=== PATIENT | male | born 1940 | race Caucasian/White ===

== ENCOUNTER 2017-05-18 10:48 | Inpatient (IN) | payer OTHER, MEDICARE ==
--- NOTE | 2017-05-18 11:29 | EDM.PDOC ---
ED HPI GENERAL MEDICAL PROBLEM - General Chief Complaint: General Stated Complaint: FALL Time Seen by Provider: 05/18/17 11:08 Source of Information: Reports: Patient History Limitations: Reports: No Limitations - History of Present Illness INITIAL COMMENTS - FREE TEXT/NARRATIVE: HISTORY AND PHYSICAL: History of present illness: Patient is a 76-year-old male who presents to the emergency room with complaints of right hip pain post fall. Patient was at the hospital to receive an ultrasound of a "fatty tumor" and upon leaving the facility he states he " got ran over by the revolving door". The hospital called a rapid response due to the patient's fall and he was evaluated by staff. At this time he was offered to be evaluated through the emergency room. He states "I'm fine but suggested I be seen". He does have an abrasion to the right scalp, right thumb and pain with ambulation to the right hip. He says a 4 point cane with ambulation. He denies any loss of consciousness. Does take Plavix daily. Review of systems: As per history of present illness and below otherwise all systems reviewed and negative. Past medical history: As per history of present illness and as reviewed below otherwise noncontributory. Surgical history: As per history of present illness and as reviewed below otherwise noncontributory. Social history: No reported history of drug or alcohol abuse. Family history: As per history of present illness and as reviewed below otherwise noncontributory. Physical exam: General: Well-developed and well-nourished 76-year-old male. Alert and oriented. Nontoxic appearing and in no acute distress. HEENT: Tenderness with palpation of the scalp, normocephalic, pupils reactive, negative for conjunctival pallor or scleral icterus, mucous membranes moist, throat clear, neck supple, nontender, trachea midline. Abrasion noted to right upper forehead. Lungs: Clear to auscultation, breath sounds equal bilaterally, chest nontender. Heart: S1S2, regular rate and rhythm Abdomen: Soft, nondistended, nontender. Negative for masses or hepatosplenomegaly. Negative for costovertebral tenderness. Pelvis: Stable nontender. Genitourinary: Deferred. Rectal: Deferred. Skin: Abrasion noted to right upper scalp/forehead, abrasion to right thumb. Extremities: Moves all extremities per self, (uses a 4 point walker to ambulate - normal variance). Mild tenderness to the right hip with weightbearing and deep palpation. No tenderness to any of the other extremities with range of motion or palpation. Denies any numbness or tingling to upper or lower extremities. Neurovascular unremarkable. Neuro: Awake, alert, oriented. Cranial nerves II through XII unremarkable. Cerebellum unremarkable. Motor and sensory unremarkable throughout. Exam nonfocal. Patient lab work is normal. No significant findings with the head CT, cervical spine, x-ray of pelvis and hip. EKG shows normal sinus rhythm. Patient requests to be discharged to home. Upon getting the patient ready for discharge we did attempt to ambulate him. The patient is unable to stand at this time due to his pain with weightbearing. at the bedside states he normally ambulates with his walker and was ambulating without difficulty prior to this fall. CT scan of the hip will be ordered at this time. CT shows a small nondisplaced avulsion fracture of the greater tuberosity with remaining osseous structures and joint spaces preserved. Orthopedics is not available today, but can be consulted. Dr. Sewell was consulted on this case and is agreeable to keep the patient for observation. and patient are aware of this and agreeable. reports that they live in [place] and have multiple stairs in their home, and "I wouldn't be able to get him inside anyway". Diagnostics: CBC, CMP, troponin, EKG, CT head/cervical spine, x-ray pelvis and right hip, CT hip Therapeutics: Wound care, bacitracin, [place] Impression: Mechanical fall Nondisplaced right hip fracture Plan: Observation admission for Dr. Sewell Definitive disposition and diagnosis as appropriate pending reevaluation and review of above. Onset: Today Duration: Minutes: - Related Data Allergies Allergy/AdvReac Type Severity Reaction Status Date / Time clindamycin [From Veltin] Allergy Leg Cramps Verified 05/18/17 14:40 tretinoin [From Veltin] Allergy Leg Cramps Verified 05/18/17 14:40 Home Meds: Home Meds . [Unable to Verify Home Med List] 05/18/17 [History] Past Medical History HEENT History: Reports: Cataract Cardiovascular History: Reports: High Cholesterol, Hypertension Genitourinary History: Reports: Other (See Below) Other Genitourinary History: frequent urination Musculoskeletal History: Reports: Other (See Below) Other Musculoskeletal History: fatty tumor lower left side, had usg today for this Neurological History: Reports: Other (See Below) Other Neuro History: stroke Psychiatric History: Reports: Depression Endocrine/Metabolic History: Reports: Diabetes, Type II - Past Surgical History HEENT Surgical History: Reports: Cataract Surgery, Tonsillectomy, Other (See Below) Other HEENT Surgeries/Procedures: macular hole eye repaired. Social & Family History - Family History Family Medical History: Noncontributory - Tobacco Use Smoking Status *Q: Never Smoker Second Hand Smoke Exposure: No - Caffeine Use Caffeine Use: Reports: None - Recreational Drug Use Recreational Drug Use: No ED ROS GENERAL - Review of Systems Review Of Systems: ROS reveals no pertinent complaints other than HPI. ED EXAM, GENERAL - Physical Exam Exam: See Below (See dictation) Course - Vital Signs Last Recorded V/S: Last Vital Signs Temp 96.6 F 05/18/17 10:56 Pulse 59 L 05/18/17 10:56 Resp 18 05/18/17 10:56 BP 110/61 05/18/17 10:56 Pulse Ox 94 L 05/18/17 10:56 - Orders/Labs/Meds Orders: Active Orders 24 hr Category Date Time Status Patient Status [ADT] Stat ADT 05/18/17 14:43 Active EKG 12 Lead [EKG Documentation Completion] [RC] STAT Care 05/18/17 11:22 Active Labs: Laboratory Tests 05/18/17 05/18/17 05/18/17 Range/Units 11:50 11:50 11:50 WBC 7.18 (4.0-11.0) K/uL RBC 4.69 (4.50-5.90) M/uL Hgb 15.1 (13.0-17.0) g/dL Hct 44.5 (38.0-50.0) % MCV 94.9 (80.0-98.0) fL MCH 32.2 H (27.0-32.0) pg MCHC 33.9 (31.0-37.0) g/dL RDW Std Deviation 49.4 (28.0-62.0) fl RDW Coeff of Olga 15 (11.0-15.0) % Plt Count 182 (150-400) K/uL MPV 10.80 (7.40-12.00) fL Neut % (Auto) 60.4 (48.0-80.0) % Lymph % (Auto) 28.3 (16.0-40.0) % Citrus % (Auto) 5.3 (0.0-15.0) % Eos % (Auto) 5.7 (0.0-7.0) % Baso % (Auto) 0.3 (0.0-1.5) % Neut # (Auto) 4.3 (1.4-5.7) K/uL Lymph # (Auto) 2.0 (0.6-2.4) K/uL [place] # (Auto) 0.4 (0.0-0.8) K/uL Eos # (Auto) 0.4 (0.0-0.7) K/uL Baso # (Auto) 0.0 (0.0-0.1) K/uL Nucleated RBC % 0.0 /100WBC Nucleated RBCs # 0 K/uL INR 1.12 Sodium 141 (136-146) mmol/L Potassium 4.2 (3.5-5.1) mmol/L Chloride 105 (98-110) mmol/L Carbon Dioxide 26 (21-31) mmol/L BUN 13 (6.0-23.0) mg/dL Creatinine 1.2 (0.6-1.5) mg/dL Est Cr Clr Drug Dosing 55.76 mL/min Estimated GFR (MDRD) 59.2 ml/min Glucose 165 H (60-110) mg/dL Calcium 9.5 (8.8-10.8) mg/dL Total Bilirubin 0.7 (0.1-1.5) mg/dL AST 26 (5-40) IU/L ALT 32 (8-54) IU/L Alkaline Phosphatase 47 (40-150) Troponin I < 0.10 (0.0-0.29) NG/ML Total Protein 6.7 (6.0-8.0) g/dL Albumin 4.1 (3.4-4.8) g/dL Globulin 2.6 (2.0-3.5) g/dL Albumin/Globulin Ratio 1.6 (1.3-2.8) Meds: Medications Discontinued Medications Generic Name Dose Route Start Last Admin Trade Name Freq PRN Reason Stop Dose Admin Hydrocodone Bitart/Acetaminophen 1 tab 05/18/17 14:43 [place] 325-5 Mg PO 05/18/17 14:44 ONETIME ONE Bacitracin 1 dose 05/18/17 12:57 05/18/17 14:07 Bacitracin Oint 1 Gm TOP 05/18/17 12:58 1 dose ONETIME ONE Administration Departure - Departure Time of Disposition: 14:42 Disposition: Refer to Observation Clinical Impression: Fall Qualifiers: Encounter type: initial encounter Qualified Code(s): W19.XXXA - Unspecified fall, initial encounter Hip fracture Qualifiers: Encounter type: initial encounter Fracture type: closed Laterality: right Qualified Code(s): S72.001A - Fracture of unspecified part of neck of right femur, initial encounter for closed fracture - Discharge Information Referrals: PCP,None [Primary Care Provider] - Forms: ED Department Discharge - My Orders Last 24 Hours: My Active Orders 05/18/17 11:22 EKG 12 Lead [EKG Documentation Completion] [RC] STAT 05/18/17 14:43 Patient Status [ADT] Stat - Assessment/Plan Last 24 Hours: My Active Orders 05/18/17 11:22 EKG 12 Lead [EKG Documentation Completion] [RC] STAT 05/18/17 14:43 Patient Status [ADT] Stat
[2017-05-18 12:29] LABS: CHLORIDE,CL 105 mmol/L (98-110); SODIUM,NA 141 mmol/L (136-146)
--- NOTE | 2017-05-18 12:36 | CT ---
EXAMINATION: Non contrast CT head. Coronal and sagittal reformats. HISTORY: Pain FINDINGS: No evidence of intra or extra axial hemorrhage, mass, midline shift, hydrocephalus or edema. Old sma ll left periventricular infarct adjacent white matter hypodensities noted. Mild generalized atrophy. No hypoattenuation changes in the major vascular territories to suggest acute infarct. No abnormal i ntracranial calcifications are detected. No evidence of substantial vascular calcifications. Moderate mucosal thickening within the right maxillary sinus. The orbits and globes are symmetric. Pituitary fossa appears unremarkable. Calvarium is intact. No evidence of skull fracture. IMPRESSION: 1. No acute intracranial findings. 2. Mild small vessel ischemic changes and generalized atrophy. 3. Old small left periventricular infarct.
--- NOTE | 2017-05-18 12:42 | CT ---
EXAMINATION: CT cervical spine HISTORY: Pain COMPARISON: None TECHNIQUE: Axial CT images obtained through the cervical spine without contrast. Coronal and sagittal reconstructions obtained. FINDINGS: The cervical spinal alignment appears normal. The vertebral body heights and disc spaces ap pear well-maintained. No fracture or acute osseous abnormality. Bone mineralization is normal. There is likely a small osteophyte disc complex noted at C3-C4. Facet arthritic changes are noted within th e lower cervical spine most prominent at C5-C6. The lung apices are clear. Small right millimeter nod ule within the left thyroid lobe containing a few subtle peripheral calcifications. IMPRESSION: 1. No acute findings within the cervical spine. 2. Degenerative changes noted.
--- NOTE | 2017-05-18 12:49 | CR ---
EXAMINATION: Pelvis and right hip HISTORY: Fall COMPARISON: None TECHNIQUE: AP pelvis and lateral right hip FINDINGS: There is no acute osseous abnormality, dislocation, or fracture. Bone mineralization and lauren int spaces are preserved. The SI joints are symmetric. The iliopectineal lines are intact. Degenerati ve changes noted within the lower lumbar spine. IMPRESSION: No acute osseous abnormality identified.
[2017-05-18] MEDS ORDERED: Bacitracin Oint 1 GM U/D Packet TOP ONE (12:57)
--- NOTE | 2017-05-18 14:22 | CT ---
EXAMINATION: CT right hip HISTORY: Fall COMPARISON: Radiograph from the same day TECHNIQUE: Axial CT images obtained through the right hip without contrast. Coronal and sagittal byron nstructions obtained. FINDINGS: There is a small nondisplaced avulsion fracture of the greater tuberosity remaining osseous structures and joint spaces appear preserved. Bone mineralization appears mildly osteopenic. No norma cent hematoma. Degenerative changes noted within the SI joints anterior bridging osteophytes on the right. Visualized intrapelvic structures appear normal. Moderate fat-containing umbilical hernia. Moderate p rostatomegaly. IMPRESSION: 1. Small nondisplaced right greater trochanter avulsion fracture. 2. Otherwise no acute findings demonstrated.
[2017-05-18] MEDS ORDERED: Acetaminophen/HYDROcodone 325-5 MG Tab PO ONE (14:43)
--- NOTE | 2017-05-18 16:14 | PCM.HP ---
H&P History of Present Illness - General Date of Service: 05/18/17 Admit Problem/Dx: R greater trochanter fracture Source of Information: Patient, Family (, Luiza at bedside) History Limitations: Reports: No Limitations - History of Present Illness Initial Comments - Free Text/Narative: This 76 year old male with pmh of CVA with residual R sided weakness, HTN, dyslipidemia, and DM type 2 presented to the ED today after falling in hospital entryway. His , Luiza, reports they were leaving the facility after having an ultrasound for a suspected lipoma. He insisted on ambulating out of the hospital through the revolving door, he was just about out of the door way when the door sped up again from the slow setting and hit his R heel. This caused him to fall and landed on his R hip. He had pain to his R hip and unable to get himself back up and ambulate. He was assisted with help to wheelchair and agreed for evaluation in the ED. He reports pain to his R hip with movement or palpation or R hip. He denies lightheadedness, headache, chest pain, palpitations, URI symptoms, abdominal pain, urinary symptoms. He denies black or bloody BMs. He normal ambulates short distances at home, needs help getting out of the chair with a lift chair and some assistance from his . Luiza reports he exercises very little to keep strength. He wears AFO to R lower leg due to foot drop. They report he is normally dyspneic with little activity and this has not changed much. He otherwise has been in normal health. In the ED labwork WNL. R hip xray had to no acute abnormalities noted. Head CT negative for acute intracranial process, but noted old left periventricular infarct. Cervical neck CT negative for acute fractures, degenerative changes noted. VSS. He will be admitted post fall with R greater trochanter fracture for pain control and PT due to inability to ambulate since fall. PCP [facility]. - Related Data Allergies/Adverse Reactions: Allergies Allergy/AdvReac Type Severity Reaction Status Date / Time ezetimibe Allergy Muscle Verified 05/18/17 16:25 Aches simvastatin AdvReac Muscle Verified 05/18/17 16:25 Aches Home Medications: Home Meds Benazepril [Lotensin] 20 mg PO BID 05/18/17 [History] Cholecalciferol (Vitamin D3) [Vitamin D3] 1,000 units PO BID 05/18/17 [History] Citalopram Hydrobromide [Celexa] 40 mg PO DAILY 05/18/17 [History] Clopidogrel Bisulfate [Plavix] 75 mg PO BEDTIME 05/18/17 [History] Fenofibrate Nanocrystallized [Fenofibrate] 145 mg PO BEDTIME 05/18/17 [History] Fish Oil/[place]-3 Fatty Acids [Fish Oil 1,000 MG] 2 gm PO BID 05/18/17 [History] Fluticasone Propionate [Flonase] 2 sprays NASBOTH BEDTIME 05/18/17 [History] Glimepiride [Amaryl] 2 mg PO BID 05/18/17 [History] Hydrochlorothiazide 12.5 mg PO DAILY 05/18/17 [History] Metoprolol Tartrate [Lopressor] 25 mg PO BID 05/18/17 [History] Niacin [Niacin ER] 1,000 mg PO BEDTIME 05/18/17 [History] Oxybutynin 2.5 mg PO BID 05/18/17 [History] Tamsulosin [Flomax] 0.4 mg PO PCDINNER 05/18/17 [History] amLODIPine Besylate [Amlodipine Besylate] 10 mg PO DAILY 05/18/17 [History] Past Medical History HEENT History: Reports: Cataract Cardiovascular History: Reports: High Cholesterol, Hypertension Respiratory History: Reports: SOB. Denies: Asthma, COPD, Sleep Apnea Gastrointestinal History: Reports: Other (See Below) (umbilical hernia). Denies : GERD, GI Bleed Genitourinary History: Reports: Other (See Below) Other Genitourinary History: frequent urination Musculoskeletal History: Reports: Other (See Below) Other Musculoskeletal History: suspected lipoma lower left side, had US today for this Neurological History: Reports: CVA Psychiatric History: Reports: Depression Endocrine/Metabolic History: Reports: Diabetes, Type II, Obesity/BMI 30+. Denies: Hypothyroidism Hematologic History: Reports: None - Past Surgical History HEENT Surgical History: Reports: Cataract Surgery, Tonsillectomy, Other (See Below) Other HEENT Surgeries/Procedures: macular hole eye repaired. Social & Family History - Family History Family Medical History: Noncontributory - Tobacco Use Smoking Status *Q: Never Smoker Second Hand Smoke Exposure: No - Caffeine Use Caffeine Use: Reports: None - Recreational Drug Use Recreational Drug Use: No - Living Situation & Occupation Living situation: Reports: , with Spouse Occupation: Retired H&P Review of Systems - Review of Systems: Review Of Systems: See Below General: Reports: No Symptoms. Denies: Fever, Chills, Malaise, Weakness HEENT: Reports: No Symptoms. Denies: Headaches, Hearing Changes, Post Nasal Drip, Sore Throat, Vertigo Pulmonary: Reports: Shortness of Breath (intermittently and with exertion at baseline now. ) Cardiovascular: Reports: Dyspnea on Exertion. Denies: Chest Pain, Palpitations , Edema, Lightheadedness, Syncope Gastrointestinal: Reports: No Symptoms. Denies: Abdominal Pain, Black Stool, Bloody Stool, Constipation, Nausea, Stool Incontinence, Vomiting Genitourinary: Reports: No Symptoms. Denies: Dysuria, Frequency, Burning, Urgency Musculoskeletal: Reports: Joint Pain (R hip pain with ambulation and palpation) Skin: Reports: Wound (abrasion to R scalp and thumb). Denies: Erythema Neurological: Reports: Weakness (R sided, pre-existing no changes.) Hematologic/Lymphatic: Reports: No Symptoms Immunologic: Reports: No Symptoms Exam - Exam Exam: See Below - Vital Signs Vital Signs: Last Vital Signs Temp 98.1 F 05/18/17 16:05 Pulse 66 05/18/17 16:05 Resp 18 05/18/17 16:05 BP 129/75 05/18/17 16:05 Pulse Ox 92 L 05/18/17 16:05 Weight: 102.058 kg - Exam Quality Assessment: Supplemental Oxygen, DVT Prophylaxis General: Alert, Oriented, Cooperative HEENT: Conjunctiva Clear, Mucosa Moist & [place], Posterior Pharynx Clear Neck: Supple, Trachea Midline, Full Range of Motion Lungs: Clear to Auscultation. No: Normal Respiratory Effort (dyspnea noted, was just moved to bed from wheelchair.) Cardiovascular: Regular Rate, Regular Rhythm, Normal S1, Normal S2. No: Systolic Murmur, Diastolic Murmur GI/Abdominal Exam: Normal Bowel Sounds, Soft, Non-Tender, No Organomegaly, No Distention, No Abnormal Bruit, No Mass, Pelvis Stable, Other (umbilical hernia.) Extremities: Normal Inspection, Normal Range of Motion, Non-Tender, No Pedal Edema, Normal Capillary Refill Skin: Wound (abrasion to R scalp, no erythema and R thumb, bacitracin applied in the ED. ) Neurological: Cranial Nerves Intact. No: Strength Equal Bilateral (R sided weakness to upper and lower extremities. R foot drop noted. No new symptoms. all pre-existing from CVA 8 years ago.) Neuro Extensive - Mental Status: Alert, Oriented x3, Normal Mood/Affect, Normal Cognition, Memory Intact Neuro Extensive - Motor, Sensory, Reflexes: CN II-XII Intact. No: Normal Gait Psychiatric: Alert, Normal Affect, Normal Mood - Patient Data Result Diagrams: 05/18/17 11:50 05/18/17 11:50 EKG INTERPRETATION EKG Date: 05/18/17 Rhythm: NSR Rate (Beats/Min): 57 [place]: Normal P-Wave: Present QRS: Normal ST-T: Normal QT: Normal *Q Meaningful Use (ADM) - VTE *Q VTE Criteria *Q: - Stroke *Q Stroke Criteria *Q: - AMI *Q AMI Criteria *Q: - Problem List (1) Greater trochanter fracture SNOMED Code(s): 279114524 ICD Code: S72.113A - DISP FX OF GREATER TROCHANTER OF UNSP FEMUR, INIT Status: Acute Current Visit: Yes Qualifiers: Encounter type: initial encounter Fracture type: closed Fracture alignment: nondisplaced Laterality: right Qualified Code(s): S72.114A - Nondisplaced fracture of greater trochanter of right femur, initial encounter for closed fracture (2) Fall SNOMED Code(s): 9533354 ICD Code: W19.XXXA - UNSPECIFIED FALL, INITIAL ENCOUNTER Status: Chronic Current Visit: Yes Qualifiers: Encounter type: initial encounter Qualified Code(s): W19.XXXA - Unspecified fall, initial encounter (3) HTN (hypertension) SNOMED Code(s): 78441446 ICD Code: I10 - ESSENTIAL (PRIMARY) HYPERTENSION Status: Chronic Current Visit: Yes Qualifiers: Hypertension type: essential hypertension Qualified Code(s): I10 - Essential (primary) hypertension (4) Dyslipidemia SNOMED Code(s): 198489707 ICD Code: E78.5 - HYPERLIPIDEMIA, UNSPECIFIED Status: Chronic Current Visit: Yes (5) DM type 2 (diabetes mellitus, type 2) SNOMED Code(s): 12510998 ICD Code: E11.9 - TYPE 2 DIABETES MELLITUS WITHOUT COMPLICATIONS Status: Chronic Current Visit: Yes Qualifiers: Diabetes mellitus complication status: without complication (6) History of CVA with residual deficit SNOMED Code(s): 414890288 ICD Code: I69.30 - UNSPECIFIED SEQUELAE OF CEREBRAL INFARCTION Status: Chronic Current Visit: Yes (7) Obesity (BMI 30.0-34.9) SNOMED Code(s): 840084284 ICD Code: E66.9 - OBESITY, UNSPECIFIED Status: Chronic Current Visit: Yes (8) Depression SNOMED Code(s): 26013014 ICD Code: F32.9 - MAJOR DEPRESSIVE DISORDER, SINGLE EPISODE, UNSPECIFIED Status: Chronic Current Visit: Yes Qualifiers: Depression Type: unspecified Qualified Code(s): F32.9 - Major depressive disorder, single episode, unspecified Problem List Initiated/Reviewed/Updated: Yes Assessment/Plan Comment:: This 76 year old male admitted post fall with R greater trochanter fracture 1. R greater trochanter non displaced fracture: Was able to contact BRENDA Palacio in Orthopedics, who then contacted Dr Hall, from review of Hip CT, no surgical intervention needed now, recommended no active or passive abduction and ambulation is ok. Will order PT to evaluate and treat. Pain control and bowel regimen to be ordered. very nervous about taking him home if he is unable to ambulate back to his baseline. She cares for him and he already is a lot of work. She recently had L knee replacement. She would prefer swing bed if needed and they would like to go [place] swing bed. She is going to stop there this evening on her way home and fill out application. 2. HTN: Stable. Continue Norvasc, Benazepril, HCTZ, Lopressor. 3. Hx CVA: Stable, continue Plavix Niacin and Fenofibrate 4. DM type 2: Hold Glimperide while in hospital. Check BS TIDAC and Novolog SSI 5. Depression: Stable, continue Celexa. VTE prophylaxis: Continue Plavix, add Lovenox. Dispo: 2-4 days pending improvement and potentially placement to swing bed to rehabilitation. Case management consult in.
[2017-05-18] MEDS ORDERED: Acetaminophen 325 MG Tab PO PRN (16:15)
[2017-05-18] MEDS ORDERED: Sodium Chloride 0.9% 2.5 ML Syringe FLUSH PRN (16:20)
[2017-05-18] MEDS ORDERED: Ondansetron 4 MG/2 ML SDV IVPUSH PRN (16:20)
[2017-05-18] MEDS ORDERED: oxyCODONE 5 MG Tab PO PRN (16:20)
[2017-05-18] MEDS ORDERED: Bisacodyl 10 MG Supp RECTAL PRN (16:20)
[2017-05-18] MEDS ORDERED: Morphine 2 MG/ML Syringe IVPUSH PRN (16:32)
[2017-05-18] MEDS: Insulin Aspart 100 Units/ML 3 ML Pen SUBCUT SCH (17:01)
[2017-05-18] MEDS: Tamsulosin 0.4 MG Cap.ER PO SCH (18:29)
[2017-05-18] MEDS: Fish Oil/Omega-3 Fatty Acids 1 Gm Cap PO SCH (20:01)
[2017-05-18] MEDS: Metoprolol Tartrate 25 MG Tab PO SCH (20:01)
[2017-05-18] MEDS: Cholecalciferol (Vitamin D3) 1,000 Unit Tab PO SCH (20:02)
[2017-05-18] MEDS: Benazepril 10 MG Tab PO SCH (20:02)
[2017-05-18] MEDS: Fluticasone Propionate Nasal Spray 16 GM Bottle NASBOTH SCH (20:03)
[2017-05-18] MEDS: Oxybutynin 5 MG Tab PO SCH (20:03)
[2017-05-18] MEDS: Clopidogrel 75 MG Tab PO SCH (20:04)
[2017-05-18] MEDS: FENOFIBRATE 145 MG PO SCH (20:04)
[2017-05-18] MEDS: Niacin 500 MG Tab PO SCH (21:34)
[2017-05-19] MEDS: Insulin Aspart 100 Units/ML 3 ML Pen SUBCUT SCH ×3 (06:50→16:26)
[2017-05-19] MEDS: amLODIPine 5 MG Tab PO SCH (08:12)
[2017-05-19] MEDS: Fish Oil/Omega-3 Fatty Acids 1 Gm Cap PO SCH ×2 (08:12→20:08)
[2017-05-19] MEDS: Docusate Sodium 100 MG Cap PO SCH (08:13)
[2017-05-19] MEDS: Cholecalciferol (Vitamin D3) 1,000 Unit Tab PO SCH ×2 (08:13→20:09)
[2017-05-19] MEDS: Metoprolol Tartrate 25 MG Tab PO SCH ×2 (08:13→20:09)
[2017-05-19] MEDS: Oxybutynin 5 MG Tab PO SCH ×2 (08:13→20:09)
[2017-05-19] MEDS: Benazepril 10 MG Tab PO SCH ×2 (08:13→20:08)
[2017-05-19] MEDS: Hydrochlorothiazide 25 MG Tab PO SCH (08:14)
[2017-05-19] MEDS: Enoxaparin 40 MG/0.4 ML Syringe SUBCUT SCH (08:14)
[2017-05-19] MEDS: Citalopram 20 MG Tab PO SCH (08:53)
--- NOTE | 2017-05-19 13:03 | PCM.PN ---
- General Info Date of Service: 05/19/17 Subjective Update: Patient is stable, doing better than yesterday. Patient was seen while PT was assessing him. PT states that he is still having ambulatory dysfunction and requiring increased support and PT help. Patient has an inability to rise from a sitting position. No shortness of breath, fevers, chills or neurological dysfunction is appreciated at the moment. - Review of Systems General: Reports: Weakness Musculoskeletal: Reports: Leg Pain - Patient Data Vitals - Most Recent: Last Vital Signs Temp 36.2 C 05/19/17 11:51 Pulse 78 05/19/17 11:51 Resp 18 05/19/17 11:51 BP 136/71 05/19/17 11:51 Pulse Ox 93 L 05/19/17 11:51 Weight - Most Recent: 102.058 kg I&O - Last 24 Hours: Intake & Output 05/18/17 05/19/17 05/19/17 22:59 06:59 14:59 Intake Total 250 Output Total 450 Balance -200 Lab Results Last 24 Hours: Laboratory Results - last 24 hr 05/18/17 05/19/17 05/19/17 Range/Units 16:57 05:45 05:45 WBC 8.65 (4.0-11.0) K/uL RBC 4.22 L (4.50-5.90) M/uL Hgb 13.5 (13.0-17.0) g/dL Hct 40.2 (38.0-50.0) % MCV 95.3 (80.0-98.0) fL MCH 32.0 (27.0-32.0) pg MCHC 33.6 (31.0-37.0) g/dL RDW Std Deviation 50.5 (28.0-62.0) fl RDW Coeff of Olga 15 (11.0-15.0) % Plt Count 156 (150-400) K/uL MPV 10.80 (7.40-12.00) fL Neut % (Auto) 66.4 (48.0-80.0) % Lymph % (Auto) 21.4 (16.0-40.0) % [place] % (Auto) 6.0 (0.0-15.0) % Eos % (Auto) 6.0 (0.0-7.0) % Baso % (Auto) 0.2 (0.0-1.5) % Neut # (Auto) 5.7 (1.4-5.7) K/uL Lymph # (Auto) 1.9 (0.6-2.4) K/uL [place] # (Auto) 0.5 (0.0-0.8) K/uL Eos # (Auto) 0.5 (0.0-0.7) K/uL Baso # (Auto) 0.0 (0.0-0.1) K/uL Nucleated RBC % 0.0 /100WBC Nucleated RBCs # 0 K/uL Sodium 140 (136-146) mmol/L Potassium 3.9 (3.5-5.1) mmol/L Chloride 107 (98-110) mmol/L Carbon Dioxide 26 (21-31) mmol/L BUN 18 (6.0-23.0) mg/dL Creatinine 1.2 (0.6-1.5) mg/dL Est Cr Clr Drug Dosing 55.76 mL/min Estimated GFR (MDRD) 59.2 ml/min Glucose 99 (60-110) mg/dL POC Glucose 137 H (60-110) mg/dL Calcium 8.9 (8.8-10.8) mg/dL Med Orders - Current: Current Medications Acetaminophen (Tylenol) 650 mg PO Q4H PRN PRN Reason: Pain (mild 1-3) Amlodipine Besylate (Norvasc) 10 mg PO DAILY [facility] Last Admin: 05/19/17 08:12 Dose: 10 mg Benazepril HCl (Lotensin) 20 mg PO BID [facility] Last Admin: 05/19/17 08:13 Dose: 20 mg Bisacodyl (Dulcolax) 10 mg RECTAL DAILY PRN PRN Reason: Constipation Cholecalciferol (Vitamin D3) 1,000 units PO BID [facility] Last Admin: 05/19/17 08:13 Dose: 1,000 units Citalopram Hydrobromide (Celexa) 40 mg PO DAILY [facility] Last Admin: 05/19/17 08:53 Dose: 40 mg Clopidogrel Bisulfate (Plavix) 75 mg PO BEDTIME [facility] Last Admin: 05/18/17 20:04 Dose: 75 mg Docusate Sodium (Colace) 100 mg PO DAILY [facility] Last Admin: 05/19/17 08:13 Dose: 100 mg Enoxaparin Sodium (Lovenox) 40 mg SUBCUT DAILY [facility] Last Admin: 05/19/17 08:14 Dose: 40 mg Fish Oil (Fish Oil) 2 gm PO BID [facility] Last Admin: 05/19/17 08:12 Dose: 2 gm Fluticasone Propionate (Flonase) 0 gm NASBOTH BEDTIME [facility] Last Admin: 05/18/17 20:03 Dose: 2 sprays Hydrochlorothiazide (Hydrochlorothiazide) 12.5 mg PO DAILY [facility] Last Admin: 05/19/17 08:14 Dose: 12.5 mg Insulin Aspart (Novolog) 0 unit SUBCUT TIDAC [facility] PRN Reason: Protocol Last Admin: 05/19/17 11:35 Dose: Not Given Metoprolol Tartrate (Lopressor) 25 mg PO BID [facility] Last Admin: 05/19/17 08:13 Dose: 25 mg Morphine Sulfate (Morphine) 2 mg IVPUSH Q4H PRN PRN Reason: severe pain 10/10 Niacin (Niacin) 1,000 mg PO BEDTIME [facility] Last Admin: 05/18/17 21:34 Dose: 1,000 mg Ondansetron HCl (Zofran) 4 mg IVPUSH Q4H PRN PRN Reason: Nausea Oxybutynin Chloride (Oxybutynin) 2.5 mg PO BID [facility] Last Admin: 05/19/17 08:13 Dose: 2.5 mg Oxycodone HCl (Oxycodone) 5 mg PO Q4H PRN PRN Reason: Pain (moderate 4-6) Fenofibrate 145 Mg 1 each PO BEDTIME [facility] Last Admin: 05/18/17 20:04 Dose: Not Given Sodium Chloride (Saline Flush) 2.5 ml FLUSH ASDIRECTED PRN PRN Reason: Keep Vein Open Tamsulosin HCl (Flomax) 0.4 mg PO PCDINNER [facility] Last Admin: 05/18/17 18:29 Dose: 0.4 mg Discontinued Medications Hydrocodone Bitart/Acetaminophen ([place] 325-5 Mg) 1 tab PO ONETIME ONE Stop: 05/18/17 14:44 Last Admin: 05/18/17 15:10 Dose: 1 tab Bacitracin (Bacitracin Oint 1 Gm) 1 dose TOP ONETIME ONE Stop: 05/18/17 12:58 Last Admin: 05/18/17 14:07 Dose: 1 dose - Exam General: Alert, Oriented, Cooperative, No Acute Distress HEENT: Pupils Equal Lungs: Clear to Auscultation, Normal Respiratory Effort Cardiovascular: Regular Rate, Regular Rhythm GI/Abdominal Exam: Normal Bowel Sounds Extremities: Leg Pain (Mild right hip pain), Limited Range of Motion - Problem List Review Problem List Initiated/Reviewed/Updated: Yes - Plan Plan:: This 76 year old male admitted post fall with R greater trochanter fracture 1. R greater trochanter non displaced fracture: Was able to contact BRENDA Palacio in Orthopedics, who then contacted Dr Hall, from review of Hip CT, no surgical intervention needed now, recommended no active or passive abduction and ambulation is ok. -PT has assessed the patient says that he needs increased support, patient has difficult time arising from a sitting position. -[place] swing bed has been contacted need to get the paperwork done to have the patient transferred over once patient is doing better from an acute ambulatory standpoint. 2. HTN: Stable. Continue Norvasc, Benazepril, HCTZ, Lopressor. 3. Hx CVA: Stable, continue Plavix Niacin and Fenofibrate 4. DM type 2: Hold Glimperide while in hospital. Check BS TIDAC and Novolog SSI 5. Depression: Stable, continue Celexa. VTE prophylaxis: Continue Plavix, add Lovenox. Dispo: 2-4 days pending improvement and case management has completed paperwork for having the patient transferred over to [place].
[2017-05-19] MEDS: Tamsulosin 0.4 MG Cap.ER PO SCH (17:00)
[2017-05-19] MEDS: Clopidogrel 75 MG Tab PO SCH (20:09)
[2017-05-19] MEDS: Fluticasone Propionate Nasal Spray 16 GM Bottle NASBOTH SCH (20:10)
[2017-05-19] MEDS: Niacin 500 MG Tab PO SCH (21:09)
[2017-05-19] MEDS: FENOFIBRATE 145 MG PO SCH (22:46)
[2017-05-20 06:35] LABS: CHLORIDE,CL 105 mmol/L (98-110); SODIUM,NA 139 mmol/L (136-146)
[2017-05-20] MEDS: Insulin Aspart 100 Units/ML 3 ML Pen SUBCUT SCH ×3 (07:50→16:39)
[2017-05-20] MEDS: Fish Oil/Omega-3 Fatty Acids 1 Gm Cap PO SCH ×2 (08:23→20:27)
[2017-05-20] MEDS: Cholecalciferol (Vitamin D3) 1,000 Unit Tab PO SCH ×2 (08:23→20:28)
[2017-05-20] MEDS: Docusate Sodium 100 MG Cap PO SCH (08:24)
[2017-05-20] MEDS: Oxybutynin 5 MG Tab PO SCH ×2 (08:24→20:27)
[2017-05-20] MEDS: Benazepril 10 MG Tab PO SCH ×2 (08:24→20:27)
[2017-05-20] MEDS: amLODIPine 5 MG Tab PO SCH (08:25)
[2017-05-20] MEDS: Citalopram 20 MG Tab PO SCH (08:25)
[2017-05-20] MEDS: Hydrochlorothiazide 25 MG Tab PO SCH (08:25)
[2017-05-20] MEDS: Enoxaparin 40 MG/0.4 ML Syringe SUBCUT SCH (08:34)
[2017-05-20] MEDS: Metoprolol Tartrate 25 MG Tab PO SCH ×2 (08:40→20:26)
--- NOTE | 2017-05-20 12:33 | PCM.PN ---
- Review of Systems Systems Review Comment:: right hip pain conrolled - Patient Data Vitals - Most Recent: Last Vital Signs Temp 36.7 C 05/20/17 08:00 Pulse 69 05/20/17 08:40 Resp 18 05/20/17 08:00 BP 133/74 05/20/17 08:40 Pulse Ox 93 L 05/20/17 08:00 Weight - Most Recent: 102.058 kg I&O - Last 24 Hours: Intake & Output 05/19/17 05/20/17 05/20/17 22:59 06:59 14:59 Intake Total 620 300 Output Total 800 750 Balance -180 -450 Lab Results Last 24 Hours: Laboratory Results - last 24 hr 05/19/17 05/19/17 05/19/17 Range/Units 05:55 11:07 16:16 WBC (4.0-11.0) K/uL RBC (4.50-5.90) M/uL Hgb (13.0-17.0) g/dL Hct (38.0-50.0) % MCV (80.0-98.0) fL MCH (27.0-32.0) pg MCHC (31.0-37.0) g/dL RDW Std Deviation (28.0-62.0) fl RDW Coeff of Olga (11.0-15.0) % Plt Count (150-400) K/uL MPV (7.40-12.00) fL Neut % (Auto) (48.0-80.0) % Lymph % (Auto) (16.0-40.0) % [place] % (Auto) (0.0-15.0) % Eos % (Auto) (0.0-7.0) % Baso % (Auto) (0.0-1.5) % Neut # (Auto) (1.4-5.7) K/uL Lymph # (Auto) (0.6-2.4) K/uL [place] # (Auto) (0.0-0.8) K/uL Eos # (Auto) (0.0-0.7) K/uL Baso # (Auto) (0.0-0.1) K/uL Nucleated RBC % /100WBC Nucleated RBCs # K/uL Sodium (136-146) mmol/L Potassium (3.5-5.1) mmol/L Chloride (98-110) mmol/L Carbon Dioxide (21-31) mmol/L BUN (6.0-23.0) mg/dL Creatinine (0.6-1.5) mg/dL Est Cr Clr Drug Dosing mL/min Estimated GFR (MDRD) ml/min Glucose (60-110) mg/dL POC Glucose 85 144 H 132 H (60-110) mg/dL Calcium (8.8-10.8) mg/dL 05/20/17 05/20/17 05/20/17 Range/Units 05:40 05:40 06:15 WBC 7.82 (4.0-11.0) K/uL RBC 4.53 (4.50-5.90) M/uL Hgb 14.5 (13.0-17.0) g/dL Hct 43.3 (38.0-50.0) % MCV 95.6 (80.0-98.0) fL MCH 32.0 (27.0-32.0) pg MCHC 33.5 (31.0-37.0) g/dL RDW Std Deviation 50.4 (28.0-62.0) fl RDW Coeff of Olga 15 (11.0-15.0) % Plt Count 174 (150-400) K/uL MPV 11.10 (7.40-12.00) fL Neut % (Auto) 62.3 (48.0-80.0) % Lymph % (Auto) 23.4 (16.0-40.0) % [place] % (Auto) 7.0 (0.0-15.0) % Eos % (Auto) 7.0 (0.0-7.0) % Baso % (Auto) 0.3 (0.0-1.5) % Neut # (Auto) 4.9 (1.4-5.7) K/uL Lymph # (Auto) 1.8 (0.6-2.4) K/uL [place] # (Auto) 0.6 (0.0-0.8) K/uL Eos # (Auto) 0.6 (0.0-0.7) K/uL Baso # (Auto) 0.0 (0.0-0.1) K/uL Nucleated RBC % 0.0 /100WBC Nucleated RBCs # 0 K/uL Sodium 139 (136-146) mmol/L Potassium 4.2 (3.5-5.1) mmol/L Chloride 105 (98-110) mmol/L Carbon Dioxide 22 (21-31) mmol/L BUN 18 (6.0-23.0) mg/dL Creatinine 1.1 (0.6-1.5) mg/dL Est Cr Clr Drug Dosing 60.83 mL/min Estimated GFR (MDRD) > 60.0 ml/min Glucose 187 H (60-110) mg/dL POC Glucose 165 H (60-110) mg/dL Calcium 9.1 (8.8-10.8) mg/dL Med Orders - Current: Current Medications Acetaminophen (Tylenol) 650 mg PO Q4H PRN PRN Reason: Pain (mild 1-3) Amlodipine Besylate (Norvasc) 10 mg PO DAILY [facility] Last Admin: 05/20/17 08:25 Dose: 10 mg Benazepril HCl (Lotensin) 20 mg PO BID [facility] Last Admin: 05/20/17 08:24 Dose: 20 mg Bisacodyl (Dulcolax) 10 mg RECTAL DAILY PRN PRN Reason: Constipation Cholecalciferol (Vitamin D3) 1,000 units PO BID [facility] Last Admin: 05/20/17 08:23 Dose: 1,000 units Citalopram Hydrobromide (Celexa) 40 mg PO DAILY [facility] Last Admin: 05/20/17 08:25 Dose: 40 mg Clopidogrel Bisulfate (Plavix) 75 mg PO BEDTIME [facility] Last Admin: 05/19/17 20:09 Dose: 75 mg Docusate Sodium (Colace) 100 mg PO DAILY [facility] Last Admin: 05/20/17 08:24 Dose: 100 mg Enoxaparin Sodium (Lovenox) 40 mg SUBCUT DAILY [facility] Last Admin: 05/20/17 08:34 Dose: 40 mg Fish Oil (Fish Oil) 2 gm PO BID [facility] Last Admin: 05/20/17 08:23 Dose: 2 gm Fluticasone Propionate (Flonase) 0 gm NASBOTH BEDTIME [facility] Last Admin: 05/19/17 20:10 Dose: 2 sprays Hydrochlorothiazide (Hydrochlorothiazide) 12.5 mg PO DAILY [facility] Last Admin: 05/20/17 08:25 Dose: 12.5 mg Insulin Aspart (Novolog) 0 unit SUBCUT TIDAC [facility] PRN Reason: Protocol Last Admin: 05/20/17 12:27 Dose: 1 unit Metoprolol Tartrate (Lopressor) 25 mg PO BID [facility] Last Admin: 05/20/17 08:40 Dose: 25 mg Morphine Sulfate (Morphine) 2 mg IVPUSH Q4H PRN PRN Reason: severe pain 10/10 Niacin (Niacin) 1,000 mg PO BEDTIME [facility] Last Admin: 05/19/17 21:09 Dose: 1,000 mg Ondansetron HCl (Zofran) 4 mg IVPUSH Q4H PRN PRN Reason: Nausea Oxybutynin Chloride (Oxybutynin) 2.5 mg PO BID [facility] Last Admin: 05/20/17 08:24 Dose: 2.5 mg Oxycodone HCl (Oxycodone) 5 mg PO Q4H PRN PRN Reason: Pain (moderate 4-6) Fenofibrate 145 Mg 1 each PO BEDTIME [facility] Last Admin: 05/19/17 22:46 Dose: Not Given Sodium Chloride (Saline Flush) 2.5 ml FLUSH ASDIRECTED PRN PRN Reason: Keep Vein Open [facility]amsulosin [facility] ([facility]) [facility] [facility] Last Admin: 05/19/17 17:00 Dose: 0.4 mg Discontinued Medications Hydrocodone Bitart/Acetaminophen ([place] 325-5 Mg) 1 tab PO ONETIME ONE Stop: 05/18/17 14:44 Last Admin: 05/18/17 15:10 Dose: 1 tab Bacitracin (Bacitracin Oint 1 Gm) 1 dose TOP ONETIME ONE Stop: 05/18/17 12:58 Last Admin: 05/18/17 14:07 Dose: 1 dose - Exam General: Alert, Oriented Lungs: Clear to Auscultation, Normal Respiratory Effort Cardiovascular: Regular Rate, Regular Rhythm GI/Abdominal Exam: Soft, Non-Tender Extremities: No Pedal Edema Skin: Warm, Dry, Intact Neurological: No New Focal Deficit - Problem List Review Problem List Initiated/Reviewed/Updated: Yes - Plan Plan:: This 76 year old male admitted post fall with R greater trochanter fracture Hip pain controlled. Plan on discharge to [place] tomorrow.
[2017-05-20] MEDS: Tamsulosin 0.4 MG Cap.ER PO SCH (17:10)
[2017-05-20] MEDS: Clopidogrel 75 MG Tab PO SCH (20:28)
[2017-05-20] MEDS: Fluticasone Propionate Nasal Spray 16 GM Bottle NASBOTH SCH (20:30)
[2017-05-20] MEDS: FENOFIBRATE 145 MG PO SCH (20:35)
[2017-05-20] MEDS: Niacin 500 MG Tab PO SCH (20:36)
[2017-05-21] MEDS: Insulin Aspart 100 Units/ML 3 ML Pen SUBCUT SCH ×2 (06:48→11:48)
[2017-05-21] MEDS: Hydrochlorothiazide 25 MG Tab PO SCH (08:03)
[2017-05-21] MEDS: Fish Oil/Omega-3 Fatty Acids 1 Gm Cap PO SCH (08:03)
[2017-05-21] MEDS: Cholecalciferol (Vitamin D3) 1,000 Unit Tab PO SCH (08:04)
[2017-05-21] MEDS: Docusate Sodium 100 MG Cap PO SCH (08:08)
[2017-05-21] MEDS: Oxybutynin 5 MG Tab PO SCH (08:08)
[2017-05-21] MEDS: Metoprolol Tartrate 25 MG Tab PO SCH (08:08)
[2017-05-21] MEDS: Benazepril 10 MG Tab PO SCH (08:09)
[2017-05-21] MEDS: Citalopram 20 MG Tab PO SCH (08:09)
[2017-05-21] MEDS: amLODIPine 5 MG Tab PO SCH (08:09)
[2017-05-21] MEDS: Enoxaparin 40 MG/0.4 ML Syringe SUBCUT SCH (08:10)
--- NOTE | 2017-05-21 10:03 | PCM.DCSUM1 ---
Discharge Summary - Hospital Course Brief History: This 76 year old male with pmh of CVA with residual R sided weakness, HTN, dyslipidemia, and DM type 2 presented to the ED today after falling in hospital entryway. His , Luiza, reports they were leaving the facility after having an ultrasound for a suspected lipoma. He insisted on ambulating out of the hospital through the revolving door, he was just about out of the door way when the door sped up again from the slow setting and hit his R heel. This caused him to fall and landed on his R hip. He had pain to his R hip and unable to get himself back up and ambulate. He was assisted with help to wheelchair and agreed for evaluation in the ED. He reports pain to his R hip with movement or palpation or R hip. He denies lightheadedness, headache, chest pain, palpitations, URI symptoms, abdominal pain, urinary symptoms. He denies black or bloody BMs. He normal ambulates short distances at home, needs help getting out of the chair with a lift chair and some assistance from his . Luiza reports he exercises very little to keep strength. He wears AFO to R lower leg due to foot drop. They report he is normally dyspneic with little activity and this has not changed much. He otherwise has been in normal health. In the ED labwork WNL. R hip xray had to no acute abnormalities noted. Head CT negative for acute intracranial process, but noted old left periventricular infarct. Cervical neck CT negative for acute fractures, degenerative changes noted. Hip CT revealed small non-displaced right greater trochanter avulsion fracture, otherwise no acute findings.VSS. He will be admitted post fall with R greater trochanter fracture for pain control and PT due to inability to ambulate since fall. PCP [facility] [place]. - Discharge Data Discharge Date: 05/21/17 Discharge Disposition: DC/Tfer to SNF 03 Condition: Good - Discharge Diagnosis/Problem(s) (1) Greater trochanter fracture SNOMED Code(s): 972852153 ICD Code: S72.113A - DISP FX OF GREATER TROCHANTER OF UNSP FEMUR, INIT Status: Acute Current Visit: Yes Qualifiers: Encounter type: initial encounter Fracture type: closed Fracture alignment: nondisplaced Laterality: right Qualified Code(s): S72.114A - Nondisplaced fracture of greater trochanter of right femur, initial encounter for closed fracture (2) Fall SNOMED Code(s): 9258702 ICD Code: W19.XXXA - UNSPECIFIED FALL, INITIAL ENCOUNTER Status: Chronic Current Visit: Yes Qualifiers: Encounter type: initial encounter Qualified Code(s): W19.XXXA - Unspecified fall, initial encounter (3) HTN (hypertension) SNOMED Code(s): 79024073 ICD Code: I10 - ESSENTIAL (PRIMARY) HYPERTENSION Status: Chronic Current Visit: Yes Qualifiers: Hypertension type: essential hypertension Qualified Code(s): I10 - Essential (primary) hypertension (4) Dyslipidemia SNOMED Code(s): 133864668 ICD Code: E78.5 - HYPERLIPIDEMIA, UNSPECIFIED Status: Chronic Current Visit: Yes (5) DM type 2 (diabetes mellitus, type 2) SNOMED Code(s): 72931289 ICD Code: E11.9 - TYPE 2 DIABETES MELLITUS WITHOUT COMPLICATIONS Status: Chronic Current Visit: Yes Qualifiers: Diabetes mellitus complication status: without complication (6) History of CVA with residual deficit SNOMED Code(s): 562042356 ICD Code: I69.30 - UNSPECIFIED SEQUELAE OF CEREBRAL INFARCTION Status: Chronic Current Visit: Yes (7) Obesity (BMI 30.0-34.9) SNOMED Code(s): 269034485 ICD Code: E66.9 - OBESITY, UNSPECIFIED Status: Chronic Current Visit: Yes (8) Depression SNOMED Code(s): 56445235 ICD Code: F32.9 - MAJOR DEPRESSIVE DISORDER, SINGLE EPISODE, UNSPECIFIED Status: Chronic Current Visit: Yes Qualifiers: Depression Type: unspecified Qualified Code(s): F32.9 - Major depressive disorder, single episode, unspecified - Patient Summary/Data Consults: Consultations 05/18/17 16:20 Consult to Case Management [CONS] Routine PT Evaluation and Treatment [CONS] Routine - Patient Instructions Diet: Heart Healthy Diet, Diabetic Diet Activity: As Tolerated Activity, Other: NO passive or active abduction to R hip. Driving: Do Not Drive Showering/Bathing: May Shower Notify Provider of: Fever, Increased Pain, Swelling and Redness, Drainage, Nausea and/or Vomiting Other/Special Instructions: PT/OT to evaluate and treat. Again, Orthopedics recommends to active or passive abduction of right hip. - Discharge Plan Prescriptions/Med Rec: Acetaminophen [Tylenol] 650 mg PO Q4H PRN #60 tablet PRN Reason: Pain (Mild 1-3) oxyCODONE 5 mg PO Q4H PRN #15 tablet PRN Reason: Pain (Moderate 4-6) Home Medications: Home Meds Benazepril [Lotensin] 20 mg PO BID 05/18/17 [History] Cholecalciferol (Vitamin D3) [Vitamin D3] 1,000 units PO BID 05/18/17 [History] Citalopram Hydrobromide [Celexa] 40 mg PO DAILY 05/18/17 [History] Clopidogrel Bisulfate [Plavix] 75 mg PO BEDTIME 05/18/17 [History] Fenofibrate Nanocrystallized [Fenofibrate] 145 mg PO BEDTIME 05/18/17 [History] Fish Oil/[place]-3 Fatty Acids [Fish Oil 1,000 MG] 2 gm PO BID 05/18/17 [History] Fluticasone Propionate [Flonase] 2 sprays NASBOTH BEDTIME 05/18/17 [History] Glimepiride [Amaryl] 2 mg PO BID 05/18/17 [History] Hydrochlorothiazide 12.5 mg PO DAILY 05/18/17 [History] Metoprolol Tartrate [Lopressor] 25 mg PO BID 05/18/17 [History] Niacin [Niacin ER] 1,000 mg PO BEDTIME 05/18/17 [History] Oxybutynin 2.5 mg PO BID 05/18/17 [History] Tamsulosin [Flomax] 0.4 mg PO PCDINNER 05/18/17 [History] amLODIPine Besylate [Amlodipine Besylate] 10 mg PO DAILY 05/18/17 [History] Acetaminophen [Tylenol] 650 mg PO Q4H PRN #60 tablet 05/21/17 [Rx] Docusate Sodium [Colace] 100 mg PO DAILY cap 05/21/17 [Rx] oxyCODONE 5 mg PO Q4H PRN #15 tablet 05/21/17 [Rx] Patient Handouts: Oxycodone tablets or capsules, Acetaminophen tablets or caplets Referrals: PCP,None [Primary Care Provider] - Pia Leach PA [Physician [employer] Super[employer]] - 05/30/17 2:30 pm - Discharge Summary/Plan Comment DC Time >30 min.: No Discharge Summary/Plan Comment: Discharge diagnoses: R greater trochanter fracture- non displaced HTN HX CVA with residual R sided weakness DM type 2 Depression Lazaro was admitted for R greater trochanter fracture along with pain control and the inability to ambulate post fall due to pain and weakness. Orthopedics was consulted via telephone and no surgical intervention recommended at that time. Dr. Hall recommended NO active or passive abduction of R hip and that ambulation was ok. He is to follow up with Orthopedics on May 30. He will remain on Plavix and continue with PT/OT at the [facility] in [place]. His would be unable to care for him at this point, he is not ambulating, but is putting some pressure on his R leg while using a PAL lift for transfers. HTN and DM types 2 have been stable during admission on home medications. He is to continue all home medications at this time and follow up with PCP as needed. He will be transferred to [place] [facility] today for further rehabilitation. I will speak with accepting provider Miranda Bullock NP prior to discharge. - General Info Date of Service: 05/21/17 Admission Dx/Problem (Free Text: R greater trochanter fracture Subjective Update: Lazaro is doing well this morning, eager to be discharged to [place]. Pain is only when putting pressure on R leg or when moving. He has been getting up to the chair with assistance of nursing and a PAL lift. He denies chest pain, SOB or palpitations. Functional Status: Reports: Pain Controlled, Tolerating Diet, Urinating. Denies : Ambulating - Review of Systems HEENT: Reports: No Symptoms. Denies: Headaches, Sore Throat, Visual Changes Pulmonary: Reports: No Symptoms. Denies: Shortness of Breath, Cough, Sputum Cardiovascular: Reports: No Symptoms. Denies: Chest Pain, Palpitations, Edema Gastrointestinal: Reports: No Symptoms. Denies: Abdominal Pain, Nausea, Vomiting Genitourinary: Reports: No Symptoms. Denies: Dysuria, Frequency, Burning Musculoskeletal: Reports: Joint Pain (R hip intermittently.). Denies: Neck Pain Neurological: Reports: No Symptoms Psychiatric: Reports: No Symptoms - Patient Data Vitals - Most Recent: Last Vital Signs Temp 98.4 F 05/21/17 08:00 Pulse 66 05/21/17 08:08 Resp 18 05/21/17 08:00 BP 135/81 05/21/17 08:09 Pulse Ox 97 05/21/17 08:00 Weight - Most Recent: 102.058 kg I&O - Last 24 hours: Intake & Output 05/20/17 05/21/17 05/21/17 22:59 06:59 14:59 Intake Total 400 600 Output Total 1000 850 Balance -600 -250 Lab Results - Last 24 hrs: Laboratory Results - last 24 hr 05/20/17 05/20/17 05/20/17 Range/Units 06:15 11:57 16:05 POC Glucose 165 H 165 H 116 H (60-110) mg/dL Med Orders - Current: Current Medications Acetaminophen (Tylenol) 650 mg PO Q4H PRN PRN Reason: Pain (mild 1-3) Amlodipine Besylate (Norvasc) 10 mg PO DAILY [facility] Last Admin: 05/21/17 08:09 Dose: 10 mg Benazepril HCl (Lotensin) 20 mg PO BID [facility] Last Admin: 05/21/17 08:09 Dose: 20 mg Bisacodyl (Dulcolax) 10 mg RECTAL DAILY PRN PRN Reason: Constipation Cholecalciferol (Vitamin D3) 1,000 units PO BID [facility] Last Admin: 05/21/17 08:04 Dose: 1,000 units Citalopram Hydrobromide (Celexa) 40 mg PO DAILY [facility] Last Admin: 05/21/17 08:09 Dose: 40 mg Clopidogrel Bisulfate (Plavix) 75 mg PO BEDTIME [facility] Last Admin: 05/20/17 20:28 Dose: 75 mg Docusate Sodium (Colace) 100 mg PO DAILY [facility] Last Admin: 05/21/17 08:08 Dose: 100 mg Enoxaparin Sodium (Lovenox) 40 mg SUBCUT DAILY [facility] Last Admin: 05/21/17 08:10 Dose: 40 mg Fish Oil (Fish Oil) 2 gm PO BID [facility] Last Admin: 05/21/17 08:03 Dose: 2 gm Fluticasone Propionate (Flonase) 0 gm NASBOTH BEDTIME [facility] Last Admin: 05/20/17 20:30 Dose: 2 sprays Hydrochlorothiazide (Hydrochlorothiazide) 12.5 mg PO DAILY [facility] Last Admin: 05/21/17 08:03 Dose: 12.5 mg Insulin Aspart (Novolog) 0 unit SUBCUT TIDAC [facility] PRN Reason: Protocol Last Admin: 05/21/17 06:48 Dose: Not Given Metoprolol Tartrate (Lopressor) 25 mg PO BID [facility] Last Admin: 05/21/17 08:08 Dose: 25 mg Morphine Sulfate (Morphine) 2 mg IVPUSH Q4H PRN PRN Reason: severe pain 10/10 Niacin (Niacin) 1,000 mg PO BEDTIME [facility] Last Admin: 05/20/17 20:36 Dose: 1,000 mg Ondansetron HCl (Zofran) 4 mg IVPUSH Q4H PRN PRN Reason: Nausea Oxybutynin Chloride (Oxybutynin) 2.5 mg PO BID [facility] Last Admin: 05/21/17 08:08 Dose: 2.5 mg Oxycodone HCl (Oxycodone) 5 mg PO Q4H PRN PRN Reason: Pain (moderate 4-6) Fenofibrate 145 Mg 1 each PO BEDTIME [facility] Last Admin: 05/20/17 20:35 Dose: Not Given Sodium Chloride (Saline Flush) 2.5 ml FLUSH ASDIRECTED PRN PRN Reason: Keep Vein Open Tamsulosin HCl (Flomax) 0.4 mg PO PCDINNER [facility] Last Admin: 05/20/17 17:10 Dose: 0.4 mg Discontinued Medications Hydrocodone Bitart/Acetaminophen ([place] 325-5 Mg) 1 tab PO ONETIME ONE Stop: 05/18/17 14:44 Last Admin: 05/18/17 15:10 Dose: 1 tab Bacitracin (Bacitracin Oint 1 Gm) 1 dose TOP ONETIME ONE Stop: 05/18/17 12:58 Last Admin: 05/18/17 14:07 Dose: 1 dose - Exam General: Reports: Alert, Oriented, Cooperative, No Acute Distress Lungs: Reports: Clear to Auscultation, Normal Respiratory Effort Cardiovascular: Reports: Regular Rate, Regular Rhythm GI/Abdominal Exam: Normal Bowel Sounds, Soft, Non-Tender, No Organomegaly, No Distention, No Abnormal Bruit, No Mass, Pelvis Stable Back Exam: Reports: Normal Inspection, Full Range of Motion Extremities: Normal Inspection, No Pedal Edema, Normal Capillary Refill, Other ( tenderness with deep palpation to R hip) Skin: Reports: Warm, Dry Wound/Incisions: Reports: Healing Well (Abrasion to R scalp, healing well, no erythema. ). Denies: Erythema Neurological: Denies: Strength Equal Bilateral (R sided weakness, at baseline. Uses AFO to R lower leg with ambulation due to foot drop.) Psy/Mental Status: Reports: Alert, Normal Affect, Normal Mood *Q Meaningful Use (DIS) - VTE *Q VTE Criteria *Q: - Stroke *Q Stroke Criteria *Q: - AMI *Q AMI Criteria *Q:
== END 2017-05-21 12:55 | DRG 536 ==
LOC: MW.ED 10:48 → MW.MS 15:08
PROVIDERS: ADMIT Internal Medicine; ATTEND Internal Medicine
DX: S72.114A Nondisplaced fracture of greater trochanter of right femur, initial encounter for closed fracture (principal); W18.39XA Other fall on same level, initial encounter; Y93.89 Activity, other specified; Y92.238 Other place in hospital as the place of occurrence of the external cause; I10 Essential (primary) hypertension; E78.5 Hyperlipidemia, unspecified; E11.9 Type 2 diabetes mellitus without complications; F32.9 Major depressive disorder, single episode, unspecified; E66.9 Obesity, unspecified; I69.898 Other sequelae of other cerebrovascular disease; Z68.33 Body mass index [BMI] 33.0-33.9, adult; Z79.899 Other long term (current) drug therapy; Z88.8 Allergy status to other drugs, medicaments and biological substances
CPT/HCPCS: 36415; 70450; 70450-26; 72125; 72125-26; 73501-26-RT; 73501-RT; 73700-26-RT; 73700-RT; 80048; 80053; 82962; 84484; 85025; 85610; 93005; 97110-GP; 97162-GP; 99284; 99285-25; A9270-GY; J1650; J1815-GY